=== PATIENT | male | born 1960 | race Caucasian/White ===

== ENCOUNTER 2017-06-21 05:45 | Day surgery (SDC) | payer BC, OTHER ==
[2017-06-21] MEDS ORDERED: Midazolam 1 MG/ML 2 ML SDV ONE (07:20)
[2017-06-21] MEDS ORDERED: Propofol 200 MG/20 ML SDV ONE (07:20)
[2017-06-21] MEDS ORDERED: fentaNYL 100 MCG/2 ML SDV ONE (07:20)
[2017-06-21] MEDS ORDERED: Sodium Chloride 0.9% 1,000 ML IV SCH (08:15)
--- NOTE | 2017-06-22 08:33 | OR ---
DATE OF PROCEDURE: 06/21/2017 PROCEDURE: Colonoscopy. FINDINGS: Transverse colon polyp, approximately 5 mm, completely removed using cold biopsy forceps. COMPLICATIONS: None. STONE BREAKER: None. ANESTHESIA: MAC. RISKS: Risks, benefits, alternatives, and limitations including, but not limited to infection, bleeding, and perforation were explained to the patient, who wished to proceed. PROCEDURE IN DETAIL: The patient was placed in left lateral decubitus position. Digital rectal exam was performed without abnormality. The scope was introduced and advanced atraumatically to the ileocecal valve. The scope was brought back to the ascending, transverse, descending colon, and retroflexed. Transverse colon polyp was identified and completely removed. No evidence of old or new blood. No diverticulosis. No other concerns. The patient tolerated the procedure well. Raghu Bradford MD /[id number]
== END 2017-06-21 10:40 | disposition home or self-care (01) ==
LOC: JP.SDS 05:45
PROVIDERS: ATTEND Surgery
DX: Z12.11 Encounter for screening for malignant neoplasm of colon (principal); D12.3 Benign neoplasm of transverse colon; I25.10 Atherosclerotic heart disease of native coronary artery without angina pectoris; I10 Essential (primary) hypertension; E11.9 Type 2 diabetes mellitus without complications; Z95.1 Presence of aortocoronary bypass graft
CPT/HCPCS: 45380; 88305; J2250; J2704; J3010; J7040; J7030

== ENCOUNTER 2017-06-26 07:30 | Inpatient (IN) | payer BC ==
[2017-07-09] MEDS ORDERED: Meropenem 500 MG SDV ONE (06:39)
[2017-07-09] MEDS ORDERED: Bupivacaine 0.5%/EPINEPHrine 1:200,000 50 ML MDV ONE (06:40)
[2017-07-09] MEDS ORDERED: Acetaminophen 500 MG Tab PO ONE (06:45)
[2017-07-09] MEDS ORDERED: Dexamethasone 4 MG/ML SDV ONE (07:06)
[2017-07-09] MEDS ORDERED: Ondansetron 4 MG/2 ML SDV ONE (07:06)
[2017-07-09] MEDS ORDERED: fentaNYL 250 MCG/5 ML SDV ONE ×2 (07:06→09:39)
[2017-07-09] MEDS ORDERED: Rocuronium 50 MG/5 ML Vial ONE ×2 (07:06→07:08)
[2017-07-09] MEDS ORDERED: Propofol 200 MG/20 ML SDV ONE (07:06)
[2017-07-09] MEDS ORDERED: Succinylcholine/Normal Saline 200 MG/10 ML Syringe ONE (07:08)
[2017-07-09] MEDS ORDERED: Neostigmine Methylsulfate 1 MG/ML 5 ML Syringe ONE (07:08)
[2017-07-09] MEDS ORDERED: Dextrose 5%-Lactated Ringers 1,000 ML IV SCH (07:45)
[2017-07-09] MEDS ORDERED: ceFAZolin 2 GM in Premix Bag 1 BAG IV ONE ×2 (07:45)
[2017-07-09] MEDS ORDERED: Ropivacaine 60 ML, Dexamethasone 8 MG, EPINEPHrine 0.4 MG, Sodium Chloride 0.9% 17.6 ML NERVRT SCH ×4 (08:30)
[2017-07-09] MEDS ORDERED: Ketamine 500 MG/5 ML MDV IV SCH (08:30)
[2017-07-09] MEDS ORDERED: HYDROmorphone 2 MG Tab PO PRN (11:29)
[2017-07-09] MEDS ORDERED: Ondansetron 4 MG/2 ML SDV IVPUSH PRN (11:31)
[2017-07-09] MEDS: Acetaminophen 500 MG Tab PO SCH ×2 (13:17→20:59)
[2017-07-09] MEDS: ceFAZolin 2 GM in Premix Bag 1 BAG IV SCH ×2 (15:39→23:55)
[2017-07-09] MEDS: Celecoxib 200 MG Cap PO SCH (17:07)
[2017-07-09] MEDS: Dextrose 5%-Lactated Ringers 1,000 ML IV SCH ×2 (17:59→23:57)
[2017-07-09] MEDS: Metoprolol Tartrate 25 MG Tab PO SCH (20:58)
[2017-07-10] MEDS: Acetaminophen 500 MG Tab PO SCH ×2 (03:21→09:03)
[2017-07-10] MEDS: Dextrose 5%-Lactated Ringers 1,000 ML IV SCH (06:59)
[2017-07-10] MEDS: ceFAZolin 2 GM in Premix Bag 1 BAG IV SCH (08:48)
[2017-07-10] MEDS ORDERED: atorvaSTATin 20 MG Tab PO SCH (09:00)
[2017-07-10] MEDS ORDERED: Aspirin 81 MG Tab.EC PO SCH (09:00)
[2017-07-10] MEDS: Metoprolol Tartrate 25 MG Tab PO SCH (09:07)
[2017-07-10] MEDS: Celecoxib 200 MG Cap PO SCH (09:14)
--- NOTE | 2017-07-11 08:28 | DISCH ---
FINAL DIAGNOSES: 1. Incarcerated umbilical hernia. 2. Likelihood of extensive intraabdominal adhesion formation, otherwise history of hypertension, history of obesity, history of hyperlipidemia. OPERATIVE PROCEDURE: This was done on the date of admission. Diagnostic laparoscopy with; 1. Repair of incarcerated umbilical hernia with mesh. 2. Placement of Vicryl mesh to displace pelvic and abdominal wall from underlying viscera to limit recurrent adhesion formation that was done on 07/09/2017. HOSPITAL SUMMARY: This is a 57-year-old presenting with a large incarcerated umbilical hernia. This was repaired using laparoscopic approach on the day of admission with a mesh approach. This patient was felt to be high risk for extensive adhesion formation to the mesh. Therefore, Vicryl mesh was placed underlying it to the space and abdominal wall from the underlying viscera and other recurrent adhesion formation. The patient had a tap block intraoperatively. He also required only Tylenol. Postoperatively, we will send him home with Tylenol and Celebrex x1 week and then he will be instructed in terms of wound care as far as managing his binder, and keeping pressure over the umbilicus and will follow up with Dr. Nieto at [facility] on 07/18/2017.
--- NOTE | 2017-07-11 19:26 | OR ---
DATE OF PROCEDURE: 07/09/2017 PREOPERATIVE DIAGNOSIS: Incarcerated umbilical hernia. POSTOPERATIVE DIAGNOSES: 1. Incarcerated umbilical hernia. 2. Extensive intra-abdominal adhesions. OPERATIVE PROCEDURE: Diagnostic laparoscopy with: 1. Repair of incarcerated umbilical hernia with mesh (80302). 2. Placement of Vicryl mesh to limit recurrent adhesion formation between the small bowel and the pelvic and abdominal rosario including the newly placed mesh ([id number]). ANESTHESIA: General. HOGSHEAD OPENER: Johana Badillo PA-C and ELISEO Samuels3. INDICATIONS FOR PROCEDURE: This is a 57-year-old male presenting with a quite large incarcerated umbilical hernia. Plan is to proceed with repair of this using a mesh technique. Potential risks including bleeding, infection, injury to underlying viscera, possible problems with the mesh becoming infected or the hernia recurring as well as remote possibility of cardiopulmonary, septic, or hemorrhagic complications leading to were discussed, and the patient wishes to proceed. DETAILS OF PROCEDURE: The patient was taken to the operating room and placed in a supine position. After general endotracheal anesthesia was induced, a Espinal catheter was inserted and the abdomen prepped and draped. In the left mid abdomen, a transverse incision was made and the peritoneal cavity entered under direct visualization of an Optiview trocar, inflated to 15 mmHg of CO2. Laparoscope was then reinserted. No underlying trocar insertion site injuries were seen. Following this, 2 additional trocars were placed, one in the left upper quadrant, one in the left lower quadrant, and the abdomen examined. There was noted to be some incarcerated omentum within the hernia; in addition to this, there was some scattered adhesions between the omentum and small bowel and the lower abdomen and pelvis. These were all taken down, at which time with the aid of external pressure and the Harmonic scalpel, the hernia was reduced. At this point, a Ventralight ST Mesh with the balloon positioning system was selected. A was used. This was soaked in antibiotic-containing saline solution, placed in intraperitoneal location through the small stab wound just inferior to the umbilicus. The balloon inflation catheter was brought up through the skin and the balloon inflated, thus pushing the mesh up against the abdominal wall. Two circumferential firings of the absorbable tacking screws were then placed, thus fixing the mesh in position well away from the defect. At that point, no further problems were noted. The mesh as well as the previous other adhesions being taken down would make this patient quite prone to serious adhesion formation. Given this, a 12-inch square Vicryl mesh was placed underneath the area of the mesh and then from there down into the pelvis and posterior to the bladder along the pelvic sidewalls. At that point, no further problems were noted. Trocars were removed. The fascia in the 12 mm camera port was closed with 0 Vicryl stitch and the skin at each incision with 4-0 Vicryl skin stitch. Dressing was applied. The patient was taken to the recovery room in satisfactory condition. Physician assistant fitness manager, Johana Baidllo, played an essential role in assisting in this case, helping to position the patient, retract structures as needed as well as suturing and cutting sutures when indicated. Her presence improved patient safety and decreased operative time. Tom Nieto MD /[id number]
== END 2017-07-10 10:57 | disposition home or self-care (01) | DRG 227 ==
LOC: JP.MS 07-09 06:27 → JP.SDS 07-09 06:27 → EDSTATUS 07-09 09:00 → JP.2SS 07-09 09:45
PROVIDERS: ADMIT Surgery; ATTEND Surgery
PROC: 0WUF4JZ Supplement Abdominal Wall with Synthetic Substitute, Percutaneous Endoscopic Approach (ICD-10-PCS; principal; 2017-07-09)
PROC: 3E0M05Z Introduction of Adhesion Barrier into Peritoneal Cavity, Open Approach (ICD-10-PCS; 2017-07-09)
DX: K42.0 Umbilical hernia with obstruction, without gangrene (principal); I25.10 Atherosclerotic heart disease of native coronary artery without angina pectoris; I10 Essential (primary) hypertension; Z95.1 Presence of aortocoronary bypass graft; E78.5 Hyperlipidemia, unspecified; Z79.82 Long term (current) use of aspirin; E66.01 Morbid (severe) obesity due to excess calories; Z68.42 Body mass index [BMI] 45.0-49.9, adult; R73.03 Prediabetes
CPT/HCPCS: 88302; 94762; A9270-GY; C1781; J0171; J0690; J1100; J2185; J2405; J2704; J2795; J3010; J7030; J7042; J7050

== ENCOUNTER 2017-07-21 01:18 | Emergency (ER) | payer BC ==
[2017-07-21] MEDS ORDERED: Ketorolac 60 MG/2 ML SDV IM ONE (02:02)
--- NOTE | 2017-07-21 02:06 | EDM.PDOC ---
ED HPI GENERAL MEDICAL PROBLEM - General Chief Complaint: Fever Stated Complaint: FEVER / INCISION HURTS Time Seen by Provider: 07/21/17 01:56 Source of Information: Reports: Patient, Family, RN Notes Reviewed History Limitations: Reports: No Limitations - History of Present Illness INITIAL COMMENTS - FREE TEXT/NARRATIVE: 57-year-old gentleman presents emergency department day complaint of just not feeling well, he is postop day 10 abdominal hernia repair, states he was doing well none over the last couple days increasing pain around his incision site the has had chills and shakes no fevers Navel Pain Score (Numeric/FACES): 6 - Related Data Allergies Allergy/AdvReac Type Severity Reaction Status Date / Time No Known Allergies Allergy Verified 07/21/17 01:45 Home Meds: Home Meds Aspirin [Halfprin] 81 mg PO DAILY 06/20/17 [History] Metoprolol Tartrate [Lopressor] 25 mg PO BID 06/20/17 [History] atorvaSTATin Calcium [Atorvastatin Calcium] 80 mg PO DAILY 06/21/17 [History] Fish Oil/[place]-3 Fatty Acids [Fish Oil] 500 mg PO DAILY 06/25/17 [History] Indomethacin 50 mg PO TID 06/25/17 [History] Multivitamin [Multiple Vitamins] 1 tab PO DAILY 06/25/17 [History] Acetaminophen [Tylenol Extra Strength] 1,000 mg PO Q6H 7 Days tab 07/10/17 [Rx] Celecoxib [CeleBREX] 200 mg PO DAILY 7 Days #7 cap 07/10/17 [Rx] Past Medical History HEENT History: Reports: Impaired Vision Cardiovascular History: Reports: Bypass, CAD, High Cholesterol, Hypertension Musculoskeletal History: Reports: Fracture Other Musculoskeletal History: right ankle Endocrine/Metabolic History: Reports: Obesity/BMI 30+ Other Endocrine/Metabolic History: pre diabetic Dermatologic History: Reports: Other (See Below) Other Dermatologic History: lump off forehead as child - Infectious Disease History Infectious Disease History: Reports: Chicken Pox - Past Surgical History HEENT Surgical History: Reports: None Cardiovascular Surgical History: Reports: Other (See Below) Other Cardiovascular Surgeries/Procedures: triple bypass 2014 Respiratory Surgical History: Reports: None GI Surgical History: Reports: Colonoscopy, Hernia Repair/Other Male Surgical History: Reports: None Endocrine Surgical History: Reports: None Neurological Surgical History: Reports: None Musculoskeletal Surgical History: Reports: Other (See Below) Other Musculoskeletal Surgeries/Procedures:: right ankle with pins and screws Oncologic Surgical History: Reports: None Dermatological Surgical History: Reports: None Social & Family History - Family History Family Medical History: Noncontributory - Tobacco Use Smoking Status *Q: Never Smoker Years of Tobacco use: 45 Packs/Tins Daily: 0.3 Used Tobacco, but Quit: No Second Hand Smoke Exposure: No - Caffeine Use Caffeine Use: Reports: Soda - Alcohol Use Days Per Week of Alcohol Use: 0 Number of Drinks Per Day: 1 Total Drinks Per Week: 0 - Recreational Drug Use Recreational Drug Use: No ED ROS GENERAL - Review of Systems Review Of Systems: See Below Constitutional: Reports: Chills. Denies: Fever HEENT: Reports: No Symptoms Respiratory: Reports: No Symptoms Cardiovascular: Reports: No Symptoms GI/Abdominal: Reports: Abdominal Pain. Denies: Nausea, Vomiting : Reports: No Symptoms Musculoskeletal: Reports: No Symptoms Skin: Reports: No Symptoms Neurological: Reports: No Symptoms ED EXAM, GI/ABD - Physical Exam Exam: See Below Exam Limited By: No Limitations General Appearance: Alert, WD/WN, No Apparent Distress Respiratory/Chest: No Respiratory Distress, Lungs Clear, Normal Breath Sounds, No Accessory Muscle Use Cardiovascular: Regular Rate, Rhythm, No Murmur GI/Abdominal Exam: Normal Bowel Sounds, Soft, Tender (Tender over umbilicus), Other (Obese) Skin Exam: Warm, Dry, Intact, Normal Color, No Rash Course - Vital Signs Last Recorded V/S: Last Vital Signs Temp 98.3 F 07/21/17 01:34 Pulse 72 07/21/17 01:34 Resp 16 07/21/17 01:34 BP 164/102 H 07/21/17 01:34 Pulse Ox 99 07/21/17 01:34 - Orders/Labs/Meds Labs: Laboratory Tests 07/21/17 07/21/17 07/21/17 Range/Units 02:30 02:30 02:30 WBC 9.7 (4.5-11.0) K/uL RBC 4.26 L (4.30-5.90) M/uL Hgb 13.6 (12.0-15.0) g/dL Hct 40.8 (40.0-54.0) % MCV 96 (80-98) fL MCH 32 H (27-31) pg MCHC 33 (32-36) % Plt Count 258 (150-400) K/uL Neut % (Auto) 56 (36-66) % Lymph % (Auto) 33 (24-44) % [place] % (Auto) 9 H (2-6) % Eos % (Auto) 2 (2-4) % Baso % (Auto) 0 (0-1) % Sodium 140 (140-148) mmol/L Potassium 4.3 (3.6-5.2) mmol/L Chloride 105 (100-108) mmol/L Carbon Dioxide 26 (21-32) mmol/L Anion Gap 8.7 (5.0-14.0) mmol/L BUN 17 (7-18) mg/dL Creatinine 1.0 (0.8-1.3) mg/dL Est Cr Clr Drug Dosing 83.14 mL/min Estimated GFR (MDRD) > 60 (>60) Glucose 123 H (74-106) mg/dL Lactic Acid 1.4 (0.4-2.0) mmol/L Calcium 8.5 (8.5-10.1) mg/dL Total Bilirubin 0.3 (0.2-1.0) mg/dL AST 41 H (15-37) U/L ALT 61 (12-78) U/L Alkaline Phosphatase 67 (46-116) U/L C-Reactive Protein (0.0-0.3) mg/dL Total Protein 7.0 (6.4-8.2) g/dL Albumin 3.0 L (3.4-5.0) g/dL Globulin 4.0 H (2.3-3.5) g/dL Albumin/Globulin Ratio 0.8 L (1.2-2.2) 07/21/17 Range/Units 02:30 WBC (4.5-11.0) K/uL RBC (4.30-5.90) M/uL Hgb (12.0-15.0) g/dL Hct (40.0-54.0) % MCV (80-98) fL MCH (27-31) pg MCHC (32-36) % Plt Count (150-400) K/uL Neut % (Auto) (36-66) % Lymph % (Auto) (24-44) % [place] % (Auto) (2-6) % Eos % (Auto) (2-4) % Baso % (Auto) (0-1) % Sodium (140-148) mmol/L Potassium (3.6-5.2) mmol/L Chloride (100-108) mmol/L Carbon Dioxide (21-32) mmol/L Anion Gap (5.0-14.0) mmol/L BUN (7-18) mg/dL Creatinine (0.8-1.3) mg/dL Est Cr Clr Drug Dosing mL/min Estimated GFR (MDRD) (>60) Glucose (74-106) mg/dL Lactic Acid (0.4-2.0) mmol/L Calcium (8.5-10.1) mg/dL Total Bilirubin (0.2-1.0) mg/dL AST (15-37) U/L ALT (12-78) U/L Alkaline Phosphatase (46-116) U/L C-Reactive Protein 4.48 H (0.0-0.3) mg/dL Total Protein (6.4-8.2) g/dL Albumin (3.4-5.0) g/dL Globulin (2.3-3.5) g/dL Albumin/Globulin Ratio (1.2-2.2) Meds: Medications Discontinued Medications Generic Name Dose Route Start Last Admin Trade Name Freq PRN Reason Stop Dose Admin Ketorolac Tromethamine 60 mg 07/21/17 02:02 07/21/17 02:19 Toradol IM 07/21/17 02:03 60 mg ONETIME ONE Administration Departure - Departure Time of Disposition: 03:11 Disposition: Home, Self-Care 01 Condition: Good Clinical Impression: Abdominal pain - Discharge Information Referrals: Chidi Recinos MD [Primary Care Provider] - Forms: ED Department Discharge Additional Instructions: Use ibuprofen for baseline pain control, use hydrocodone for breakthrough pain please follow-up with your general surgeon on Sunday for further evaluation - Assessment/Plan Plan: Assessment Acuity = acute Site and laterality = abdominal pain complicated patient post op day 10 Etiology = unclear etiology Manifestations = none Location of injury = Home Lab values = CBC within normal limits lactic acid normal 1.4 albumin low at 3.0 consistent hypoalbuminemia, CRP elevated 4.48 Plan I did review lab work with him he received a Toradol IM which provided good relief and improvement, plan is discharge home with hydrocodone total #10 follow -up with his general surgeon on Sunday This note was dictated using [employer] voice recognition software please call with any questions on syntax or gildardo.
== END 2017-07-21 03:34 | disposition home or self-care (01) ==
LOC: JP.ED 01:18
DX: G89.18 Other acute postprocedural pain (principal); R10.9 Unspecified abdominal pain; I10 Essential (primary) hypertension; I25.10 Atherosclerotic heart disease of native coronary artery without angina pectoris; E78.00 Pure hypercholesterolemia, unspecified; Z79.82 Long term (current) use of aspirin; Z79.899 Other long term (current) drug therapy; Z98.890 Other specified postprocedural states; Z72.0 Tobacco use
CPT/HCPCS: 36415; 80053; 83605; 85025; 86140; 96372; 99284; J1885

== ENCOUNTER 2020-01-18 15:57 | Emergency (ER) | payer BC ==
--- NOTE | 2020-01-18 16:34 | EDM.PDOC ---
ED HPI GENERAL MEDICAL PROBLEM - General Chief Complaint: Head Injury Stated Complaint: HEAD INJURY Time Seen by Provider: 01/18/20 16:17 Source of Information: Reports: Patient, RN, RN Notes Reviewed History Limitations: Reports: No Limitations - History of Present Illness INITIAL COMMENTS - FREE TEXT/NARRATIVE: Patient was sitting around outside visiting with family. He noted a mouse which he attempted to catch. In the meantime there were several boards overhead that he was unaware of. The boards gave way and 1 of the large boards hit him in the top of the head just left of center. He denies loss of consciousness, denies numbness or tingling, denies headache, denies blurry vision, denies ringing in his ears. Patient tetanus is current as of 2017 per patient. Onset: Today, Sudden Onset Date: 01/18/20 Onset Time: 16:00 Duration: Hour(s): Location: Reports: Head Quality: Reports: Throbbing Severity: Mild Improves with: Reports: None Worsens with: Reports: None Context: Reports: Trauma Associated Symptoms: Denies: Confusion, Headaches, Nausea/Vomiting, Syncope Head Pain Score (Numeric/FACES): 0 - Related Data Allergies Allergy/AdvReac Type Severity Reaction Status Date / Time No Known Allergies Allergy Verified 01/18/20 16:20 Home Meds: Home Meds Aspirin [Halfprin] 81 mg PO DAILY 06/20/17 [History] Metoprolol Tartrate [Lopressor] 25 mg PO BID 06/20/17 [History] atorvaSTATin Calcium [Atorvastatin Calcium] 80 mg PO DAILY 06/21/17 [History] Past Medical History HEENT History: Reports: Impaired Vision Cardiovascular History: Reports: Bypass, CAD, High Cholesterol, Hypertension Musculoskeletal History: Reports: Fracture Other Musculoskeletal History: right ankle Endocrine/Metabolic History: Reports: Obesity/BMI 30+ Other Endocrine/Metabolic History: pre diabetic Dermatologic History: Reports: Other (See Below) Other Dermatologic History: lump off forehead as child - Infectious Disease History Infectious Disease History: Reports: Chicken Pox - Past Surgical History HEENT Surgical History: Reports: None Cardiovascular Surgical History: Reports: Other (See Below) Other Cardiovascular Surgeries/Procedures: triple bypass 2014 Endocrine Surgical History: Reports: None Musculoskeletal Surgical History: Reports: Other (See Below) Other Musculoskeletal Surgeries/Procedures:: right ankle with pins and screws Dermatological Surgical History: Reports: None Social & Family History - Family History Family Medical History: Noncontributory - Caffeine Use Caffeine Use: Reports: Soda ED ROS GENERAL - Review of Systems Review Of Systems: See Below Constitutional: Reports: No Symptoms HEENT: Reports: No Symptoms Respiratory: Reports: No Symptoms Cardiovascular: Reports: No Symptoms Endocrine: Reports: No Symptoms GI/Abdominal: Reports: No Symptoms : Reports: No Symptoms Musculoskeletal: Denies: Neck Pain, Back Pain, Muscle Pain Skin: Reports: Wound Neurological: Denies: Confusion, Dizziness, Headache, Numbness, Paresthesia, Seizure, Syncope, Tingling, Difficulty Walking, Weakness, Change in Speech Psychiatric: Reports: No Symptoms Hematologic/Lymphatic: Reports: No Symptoms Immunologic: Reports: No Symptoms ED EXAM, HEAD INJURY - Physical Exam Exam: See Below Exam Limited By: No Limitations General Appearance: Alert, WD/WN, No Apparent Distress Head: Normocephalic, Scalp Lacerations, Scalp Tenderness, Active Bleeding (small amount of blood at laceration site, stopped with pressure). No: Scalp Hematoma, Espinal's Sign Nexus Criteria: No: Posterior, Midline Cervical Tenderness, Evidence of Intoxication, Altered Level of Consciousness, Focal Neurological Deficit, Painful Distraction Injuries Eyes: Bilateral Eye: Normal Inspection, PERRL Ears: Normal External Exam, Normal Canal, Hearing Grossly Normal, Normal TMs Nose: Normal Inspection, Normal Mucousa, No Blood Throat/Mouth: Normal Inspection, Normal Lips, Normal Teeth Neck: Non-Tender, Full Range of Motion, Normal Alignment, Normal Inspection Respiratory: No Respiratory Distress, Lungs Clear, Normal Breath Sounds Cardiovascular: Normal Peripheral Pulses, Regular Rate, Rhythm GI/Abdominal Exam: Normal Bowel Sounds, Soft, Non-Tender Back Exam: Normal Inspection, Full Range of Motion Extremities: Normal Inspection, Normal Range of Motion 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 II-XII nml As Tested, No Motor/Sensory Deficits, Alert, Normal Mood/Affect, Oriented x 3 Skin: Normal Color, Warm/Dry - Curly Coma Score Best Eye Response ([place]): (4) Open Spontaneously Best Verbal Response ([place]): (5) Oriented Best Motor Response ([place]): (6) Obeys Commands [place] Total: 15 ED LACERATION/WOUND & YAHAIRA PROC - Laceration/Wound Repair Left [place] Head Lac/wound length in cm: 4 Appearance: Superficial, Clean Distal NVT: Neuro & Vascular Intact Anesthetic Type: Local Local Anesthesia - Lidocaine (Xylocaine): 1% Plain Local Anesthetic Volume: 2cc Skin Prep: Chlorhexidine ([place]ibiciens) Saline irrigation (cc's): 100 Exploration/Debridement/Repair: Wound Explored, In a Bloodless Field, Explored to Base, No Foreign Material Found Closed with: Paramjit # of Sutures: 5 Drain Placement: No Sterile Dressing Applied: Nurse Tetanus Status Addressed: Yes (2017) Complications: No Progress/Comments: Pt consented to laceration repair with local anesthesia. Area was numbed with 2cc of 1% lidocaine. Wound was cleaned and explored in a bloodless field. No foreign debris noted. 4 cm lac repaired with 5 paramjit. Patient tolerated the procedure with minimal difficulty. Course - Vital Signs Last Recorded V/S: Last Vital Signs Temp 36.4 C 01/18/20 16:25 Pulse 63 01/18/20 16:25 Resp 16 01/18/20 16:25 BP 164/87 H 01/18/20 16:25 Pulse Ox 97 01/18/20 16:25 - Orders/Labs/Meds Meds: Medications Discontinued Medications Generic Name Dose Route Start Last Admin Trade Name Kwame PRN Reason Stop Dose Admin Bacitracin 1 dose 01/18/20 16:40 01/18/20 16:46 Bacitracin Oint 1 Gm TOP 01/18/20 16:41 1 dose ONETIME ONE Administration Lidocaine HCl 5 ml 01/18/20 16:38 01/18/20 16:46 Xylocaine-Mpf 1% INJECT 01/18/20 16:39 5 ml ONETIME ONE Administration - Re-Assessments/Exams Free Text/Narrative Re-Assessment/Exam: 01/18/20 17:27 Patient educated to wound care of the scalp with paramjit. Tetanus was addressed with patient he did receive this in 2017. It is not necessary at this time. Patient may shower but should not stand directly under the showerhead. Patient and his are educated to signs and symptoms of neuro changes to report including headache that is the worst is ever had, changes in cognition, changes in balance, changes in coordination etc. Both state understanding. Patient follow-up with primary care provider in approximately 10 days to have paramjit removed. If patient has any concerns or questions may return to ER or follow-up with primary care provider. Departure - Departure Time of Disposition: 17:30 Disposition: Home, Self-Care 01 Clinical Impression: Laceration, Scalp laceration - Discharge Information *PRESCRIPTION DRUG MONITORING PROGRAM REVIEWED*: Not Applicable *COPY OF PRESCRIPTION DRUG MONITORING REPORT IN PATIENT DARRELL: Not Applicable Instructions: Wound Infection, Laceration Care, Adult Referrals: Chidi Recinos MD [Primary Care Provider] - Forms: ED Department Discharge Additional Instructions: Keep area clean and dry. May shower after 24 hours. Followup in approximately 10 days with primary care provider for staple removal Sepsis Event Note (ED) - Evaluation Sepsis Screening Result: No Definite Risk - Focused Exam Vital Signs: Vital Signs Temp Pulse Resp BP Pulse Ox 01/18/20 16:25 36.4 C 63 16 164/87 H 97 01/18/20 16:18 36.4 C 63 16 164/87 H 97
[2020-01-18] MEDS ORDERED: Bacitracin Oint 1 GM U/D Packet TOP ONE (16:40)
== END 2020-01-18 17:32 | disposition home or self-care (01) ==
LOC: JP.ED 15:57
DX: S01.01XA Laceration without foreign body of scalp, initial encounter (principal); I10 Essential (primary) hypertension; E78.00 Pure hypercholesterolemia, unspecified; I25.10 Atherosclerotic heart disease of native coronary artery without angina pectoris; E66.9 Obesity, unspecified; Z68.42 Body mass index [BMI] 45.0-49.9, adult; Z79.82 Long term (current) use of aspirin; Z79.899 Other long term (current) drug therapy; W20.8XXA Other cause of strike by thrown, projected or falling object, initial encounter
CPT/HCPCS: 12002; 99282; J2001

== ENCOUNTER 2021-03-20 08:30 | Emergency (ER) | payer BC ==
--- NOTE | 2021-03-20 09:19 | EDM.PDOC ---
ED HPI GENERAL MEDICAL PROBLEM - General Chief Complaint: Headache Stated Complaint: COVID POS-MIGHT ALSO HAVE PNEUMONIA Time Seen by Provider: 03/20/21 09:00 Source of Information: Reports: Patient History Limitations: Reports: No Limitations - History of Present Illness INITIAL COMMENTS - FREE TEXT/NARRATIVE: 60-year-old male has been sick with Covid symptoms for the past 9 days. 2 days after starting to get sick, he went into the walk-in clinic and got tested and was positive. He has been sick for the past 8 to 9 days, still has some loose stools and a headache and feels real weak. He came in today wondering if there is anything else that can be done. No fevers but he is short of breath especially with activity. O2 saturations are in the high 80s to low 90s, 93 after he takes a couple deep breaths. He still may qualify for BAM therapy Onset: Gradual Duration: Day(s): (9 days of symptoms) - Related Data Allergies Allergy/AdvReac Type Severity Reaction Status Date / Time No Known Allergies Allergy Verified 03/20/21 09:34 Home Meds: Home Meds Aspirin [Halfprin] 81 mg PO DAILY 06/20/17 [History] atorvaSTATin Calcium [Atorvastatin Calcium] 80 mg PO DAILY 06/21/17 [History] Indomethacin [Indocin] 50 mg PO TID 07/07/20 [History] Metoprolol Succinate [Toprol XL] 12.5 mg PO DAILY 07/07/20 [History] Nitroglycerin 0.4 mg PO ASDIRECTED PRN 07/07/20 [History] Past Medical History HEENT History: Reports: Impaired Vision Cardiovascular History: Reports: Bypass, CAD, High Cholesterol, Hypertension Musculoskeletal History: Reports: Fracture Other Musculoskeletal History: right ankle Endocrine/Metabolic History: Reports: Obesity/BMI 30+ Other Endocrine/Metabolic History: pre diabetic Dermatologic History: Reports: Other (See Below) Other Dermatologic History: lump off forehead as child - Infectious Disease History Infectious Disease History: Reports: Chicken Pox - Past Surgical History Head Surgeries/Procedures: Reports: None HEENT Surgical History: Reports: None Cardiovascular Surgical History: Reports: Other (See Below) Other Cardiovascular Surgeries/Procedures: triple bypass 2014 Respiratory Surgical History: Reports: None GI Surgical History: Reports: Colonoscopy, Hernia Repair/Other Male Surgical History: Reports: None Endocrine Surgical History: Reports: None Neurological Surgical History: Reports: None Musculoskeletal Surgical History: Reports: Other (See Below) Other Musculoskeletal Surgeries/Procedures:: right ankle with pins and screws Oncologic Surgical History: Reports: None Dermatological Surgical History: Reports: None Social & Family History - Family History Family Medical History: No Pertinent Family History - Tobacco Use Tobacco Use Status *Q: Never Tobacco User - Caffeine Use Caffeine Use: Reports: Soda ED ROS GENERAL - Review of Systems Review Of Systems: See Below Constitutional: Reports: Malaise, Decreased Appetite. Denies: Fever, Chills HEENT: Denies: Throat Pain Respiratory: Reports: Shortness of Breath, Cough GI/Abdominal: Reports: Diarrhea, Nausea, Vomiting Skin: Denies: Rash Neurological: Reports: Headache, Weakness ED EXAM, GENERAL - Physical Exam Exam: See Below Exam Limited By: No Limitations General Appearance: Alert, No Apparent Distress Eye Exam: Bilateral Eye: Normal Inspection Head: Atraumatic Respiratory/Chest: Lungs Clear, Other (Diffuse decreased breath sounds but no rales rhonchi or wheezes) Cardiovascular: Regular Rate, Rhythm. No: Tachycardia GI/Abdominal: Other (Nontender, obese) Extremities: Normal Inspection. No: Pedal Edema Neurological: Alert, Oriented Psychiatric: Normal Affect, Normal Mood Skin Exam: Warm, Dry Course - Vital Signs Last Recorded V/S: Last Vital Signs Temp 97.7 F 03/20/21 08:55 Pulse 72 03/20/21 08:55 Resp 20 03/20/21 08:55 BP 129/84 03/20/21 08:55 Pulse Ox 88 L 03/20/21 08:55 - Re-Assessments/Exams Free Text/Narrative Re-Assessment/Exam: 03/20/21 09:18 Patient is still a candidate for antibody therapy for the next 1 to 2 days, pharmacy was consulted. 03/20/21 09:24 Patient is a candidate for antibody therapy, he'll be discharged to an outpatient basis and receive IV therapy. Departure - Departure Time of Disposition: :27 Disposition: Home, Self-Care 01 Clinical Impression: COVID-19 - Discharge Information Instructions: COVID-19 Referrals: Chidi Recinos MD [Primary Care Provider] - Forms: ED Department Discharge, ED Department Discharge Care Plan Goals: You received IV antibody therapy for coronavirus today. Stay hydrated, rest, and return in the next 2 to 3 days if you are not improving, or return anytime if worsening such as increasing shortness of breath despite the antibody treatment. Sepsis Event Note (ED) - Focused Exam Vital Signs: Vital Signs Temp Pulse Resp BP Pulse Ox 03/20/21 08:55 97.7 F 72 20 129/84 88 L
== END 2021-03-20 09:31 | disposition home or self-care (01) ==
LOC: JP.ED 08:30
DX: U07.1 COVID-19 (principal); I25.810 Atherosclerosis of coronary artery bypass graft(s) without angina pectoris; E78.00 Pure hypercholesterolemia, unspecified; I10 Essential (primary) hypertension; E66.9 Obesity, unspecified; Z68.42 Body mass index [BMI] 45.0-49.9, adult; Z79.82 Long term (current) use of aspirin; Z79.899 Other long term (current) drug therapy
CPT/HCPCS: 99284